=== PATIENT | male | born 1995 | race Caucasian/White ===

== ENCOUNTER 2018-07-31 17:48 | Emergency (ER) | payer BC ==
[2018-07-31 19:51] LABS: ABS Eosinophils 0.1 10^3/ul (0-0.6); ABS Lymphocytes 2.3 10^3/ul (1.0-4.8); ABS Monocytes 0.5 10^3/ul (0-0.8); Hematocrit 45 % (42-52); Hemoglobin 15.4 g/dL (14.0-18.0); Lymphocyte % 33.2 %; Mean Corpuscular HGB Conc 35 g/dL (31-36); Mean Corpuscular Hemoglobin 30 pg (27-31); Mean Corpuscular Volume 85 fL (80-94); Mean Platelet Volume 7.9 fL (7.4-10.4); Nucleated Red Blood Cells % 0.3; Platelet Count 245 10^3/uL (150-450); Red Blood Count 5.23 10^6 /uL (4.18-5.48); Red Cell Distribution Width 13 % (10.5-15); White Blood Count 6.9 10^3/uL (3.5-10.8)
[2018-07-31 20:14] LABS: Albumin 5.1 g/dL (3.2-5.2); Albumin/Globulin Ratio 2.3 (1-3); BUN/Creatinine Ratio 10.5 (8-20); EGFR Non-African American 73.6 (>60); Globulin 2.2 g/dL (2-4); Potassium 4.8 mmol/L (3.5-5.0); Total Bilirubin 0.9 mg/dL (0.2-1.0); Total Protein 7.3 g/dL (6.4-8.9)
--- NOTE | 2018-07-31 20:20 | ED ---
Abdominal Pain/Male - HPI Summary HPI Summary: This patient is a 23 year old male presenting to [facility] accompanied by parents with a chief complaint of abd pain since 6 days ago. Patient states that the pain is located in his LUQ, right under his ribs. Patient states that the pain is a constant dull ache that worsens considerably after eating. Pain reaches its peak 10-20 minutes after eating. The pain is rated 3/10 in severity at baseline. Symptoms alleviated by nothing. Patient went to Urgent Care 4 days ago and was tested to mono, which was negative. Patient additionally reports constipation. Patient denies nausea, diarrhea, fever, chest pain. - History of Current Complaint Chief Complaint: EDAbdPain Stated Complaint: ABD PAIN PER PT Time Seen by Provider: 07/31/18 20:10 Hx Obtained From: Patient Onset/Duration: Still Present Timing: Constant Severity Initially: Moderate Severity Currently: Mild Pain Intensity: 3 Pain Scale Used: 0-10 Numeric Location: Discrete At: LUQ Radiates: Yes Radiates to: Flank Aggravating Factor(s): Food Alleviating Factor(s): Nothing Associated Signs And Symptoms: Positive: Negative - nausea, diarrhea, fever, chest pain, Other - constipation - Allergies/Home Medications Allergies/Adverse Reactions: Allergies Allergy/AdvReac Type Severity Reaction Status Date / Time Penicillins Allergy Hives Verified 07/31/18 17:58 PMH/Surg Hx/FS Hx/Imm Hx Previously Healthy: No Infectious Disease History: No Infectious Disease History: Denies: Traveled Outside the [place] in Last 30 Days - Family History Known Family History: Negative: Hypertension - Social History Occupation: Student Lives: Dormitory/Roommates Hx Substance Use: No Substance Use Type: Reports: None Hx Tobacco Use: No Smoking Status (MU): Never Smoked Tobacco Review of Systems Negative: Fever Negative: Chest Pain Positive: Abdominal Pain, Other - constipation. Negative: Diarrhea, Nausea All Other Systems Reviewed And Are Negative: Yes Physical Exam - Summary Physical Exam Summary: Appearance: Well-appearing, Well-nourished, lying in bed comfortably Skin: Warm, dry, no obvious rash Eyes: sclera anicteric, no conjunctival pallor ENT: mucous membranes moist, pharynx appears normal Neck: Supple, nontender Respiratory: Clear to auscultation, no signs of respiratory distress Cardiovascular: Normal S1, S2. No murmurs. Normal distal pulses in tibial and radial bilaterally. Abdomen: Soft, nontender, normal active bowel sounds present Musculoskeletal: Normal, Strength/ROM Intact Neurological: A&Ox3, awake and alert, mentation is normal, speech is fluent and appropriate Psychiatric: affect is normal, does not appear anxious or depressed Triage Information Reviewed: Yes Vital Signs On Initial Exam: Initial Vitals Temp Pulse Resp BP Pulse Ox 98.8 F 106 16 130/99 98 07/31/18 17:53 07/31/18 17:53 07/31/18 17:53 07/31/18 17:53 07/31/18 17:53 Vital Signs Reviewed: Yes Diagnostics - Vital Signs Vital Signs Temp Pulse Resp BP Pulse Ox 07/31/18 19:50 98.6 F 66 16 127/84 99 07/31/18 17:53 98.8 F 106 16 130/99 98 - Laboratory Lab Results: Lab Results 07/31/18 07/31/18 Range/Units 19:34 19:34 WBC 6.9 (3.5-10.8) 10^3/uL RBC 5.23 (4.18-5.48) 10^6 /uL Hgb 15.4 (14.0-18.0) g/dL Hct 45 (42-52) % MCV 85 (80-94) fL MCH 30 (27-31) pg MCHC 35 (31-36) g/dL RDW 13 (10.5-15) % Plt Count 245 (150-450) 10^3/uL MPV 7.9 (7.4-10.4) fL Neut % (Auto) 57.7 % Lymph % (Auto) 33.2 % Milam % (Auto) 7.5 % Eos % (Auto) 1.0 % Baso % (Auto) 0.6 % Absolute Neuts (auto) 4.0 (1.5-7.7) 10^3/ul Absolute Lymphs (auto) 2.3 (1.0-4.8) 10^3/ul Absolute Monos (auto) 0.5 (0-0.8) 10^3/ul Absolute Eos (auto) 0.1 (0-0.6) 10^3/ul Absolute Basos (auto) 0.0 (0-0.2) 10^3/ul Absolute Nucleated RBC 0.0 10^3/ul Nucleated RBC % 0.3 Sodium 140 (135-145) mmol/L Potassium 4.8 (3.5-5.0) mmol/L Chloride 106 (101-111) mmol/L Carbon Dioxide 28 (22-32) mmol/L Anion Gap 6 (2-11) mmol/L BUN 13 (6-24) mg/dL Creatinine 1.24 H (0.67-1.17) mg/dL Est GFR ( Amer) 89.0 (>60) Est GFR (Non-Af Amer) 73.6 (>60) BUN/Creatinine Ratio 10.5 (8-20) Glucose 93 (70-100) mg/dL Calcium 10.0 (8.6-10.3) mg/dL Total Bilirubin 0.90 (0.2-1.0) mg/dL AST 20 (13-39) U/L ALT 14 (7-52) U/L Alkaline Phosphatase 56 (34-104) U/L Total Protein 7.3 (6.4-8.9) g/dL Albumin 5.1 (3.2-5.2) g/dL Globulin 2.2 (2-4) g/dL Albumin/Globulin Ratio 2.3 (1-3) Lipase 28 (11.0-82.0) U/L Result Diagrams: 07/31/18 19:34 07/31/18 19:34 Lab Statement: Any lab studies that have been ordered have been reviewed, and results considered in the medical decision making process. Abdominal Pain Male Course/Dx - Course Course Of Treatment: This patient is a 23 year old male presenting to [facility] accompanied by parents with a chief complaint of abd pain since 6 days ago. Patient states that the pain is located in his LUQ, right under his ribs. Patient states that the pain is a constant dull ache that worsens considerably after eating. Pain reaches its peak 10-20 minutes after eating. Bloodwork Obtained. Urinalysis Obtained. Patient will be discharged with gastritis and IBS. Patient is advised to follow up with PCP in 3 days. The patient is agreeable with this plan. - Diagnoses Differential Diagnosis/HQI/PQRI: Constipation, Gall Bladder Disease, Pancreatitis, Ureteral Stone Provider Diagnoses: Gastritis, IBS (irritable bowel syndrome) Discharge - Sign-Out/Discharge Documenting (check all that apply): Patient Departure Patient Received Moderate/Deep Sedation with Procedure: No - Discharge Plan Condition: Good Disposition: HOME Patient Education Materials: Irritable Bowel Syndrome (ED), Constipation (ED) Referrals: [facility] [Outside] No Primary Care Phys,NOPCP [Primary Care Provider] - Telly Pugh MD [Medical Doctor] - Additional Instructions: I would like you to start taking a fiber supplement like metamucil or citrucel on a regular basis, starting with 1 tsp twice daily, with plenty of water. This will help get you more regular and I think will help with the pains. Until that works, you can also take something like miralax to get things going, but avoid any of the senokot derivatives, as they can make cramping worse. We will also try an empiric trial of prilosec, which can be obtained OTC, for a couple of weeks. - Billing Disposition and Condition Condition: GOOD Disposition: Home - Attestation Statements Document Initiated by Jessy: Yes Documenting Scribe: Balbir Dang Provider For Whom Jessy is Documenting (Include Credential): Levi Reddy MD Scribe Attestation: I, Balbir Dang, scribed for Levi Reddy MD on 08/01/18 at 0606. Scribe Documentation Reviewed: Yes Provider Attestation: The documentation as recorded by the Balbir coles accurately reflects the service I personally performed and the decisions made by me, Levi Reddy MD Status of Scribheather Document: Viewed
[2018-07-31 20:34] VITALS: BP 141/88
== END 2018-07-31 20:32 | disposition home or self-care (01) ==
LOC: ED 17:48
DX: K29.70 Gastritis, unspecified, without bleeding (principal); K58.9 Irritable bowel syndrome, unspecified; Z88.0 Allergy status to penicillin
CPT/HCPCS: 36415; 80053; 83690; 85025; 99282